=== PATIENT | female | born 1980 | race Two or more races ===

== ENCOUNTER 2020-01-28 06:12 | Day surgery (SDC) | payer OTHER ==
[~2020-01-28 06:12] MED LIST: MULTI VITAMIN1 EACH PO
[2020-01-28] MEDS ORDERED: MOTRIN IB200 M1 PO (08:52)
[2020-01-28] MEDS ORDERED: MORGIDOX100 MG PO (08:53)
== END 2020-01-28 13:45 | disposition home or self-care (01) ==
LOC: CIR.AMB 06:12 → ADM 08:15 → CIR.AMB 13:45
PROVIDERS: ATTEND Obstetrics & Gynecology
DX: O02.1 Missed abortion (principal)

== ENCOUNTER → 2020-08-28 | Outpatient (CLI) | payer OTHER ==
[~2020-08-28] MED LIST changes: +MORGIDOX100 MG PO; +MOTRIN IB200 M1 PO
== END | disposition home or self-care (01) ==
LOC: PRENATAL 09:58
PROVIDERS: ATTEND Obstetrics & Gynecology Maternal & Fetal Medicine
DX: O35.0XX1 Maternal care for (suspected) central nervous system malformation in fetus, fetus 1 (principal); O35.3XX1 Maternal care for (suspected) damage to fetus from viral disease in mother, fetus 1; O98.512 Other viral diseases complicating pregnancy, second trimester; O09.522 Supervision of elderly multigravida, second trimester; Z36.89 Encounter for other specified antenatal screening; Z3A.23 23 weeks gestation of pregnancy

== ENCOUNTER 2022-09-13 15:22 | Outpatient (CLI) | payer OTHER ==
[2022-09-13] MEDS ORDERED: ST. JOSEPH ASPI81 M2 PO (16:36)
[2022-09-13] MEDS ORDERED: PRENA1 TRUE CO1 EACH PO (16:36)
== END 2022-09-14 10:55 | disposition home or self-care (01) ==
LOC: OBS/DEL 15:22
PROVIDERS: ATTEND Specialist
DX: O26.892 Other specified pregnancy related conditions, second trimester (principal); E16.1 Other hypoglycemia; Z3A.19 19 weeks gestation of pregnancy

== ENCOUNTER 2023-01-15 11:27 | Inpatient (IN) | payer OTHER ==
[~2023-01-15] VITALS: Ht 167.6 cm; Wt 76.2 kg
[~2023-01-15 11:27] MED LIST changes: +PRENA1 TRUE CO1 EACH PO; +ST. JOSEPH ASPI81 M2 PO
== END 2023-02-12 13:22 | disposition home or self-care (01) | DRG 807 ==
LOC: OB/GYN 02-02 13:30 → LDR 02-09 15:37 → OB/GYN 02-09 15:37
PROVIDERS: ADMIT Specialist; ATTEND Specialist
PROC: 3E033VJ Introduction of Other Hormone into Peripheral Vein, Percutaneous Approach (ICD-10-PCS; 2023-02-09)
PROC: 4A1HXCZ Monitoring of Products of Conception, Cardiac Rate, External Approach (ICD-10-PCS; 2023-02-09)
PROC: 10E0XZZ Delivery of Products of Conception, External Approach (ICD-10-PCS; principal; 2023-02-10)
PROC: 0KQM0ZZ Repair Perineum Muscle, Open Approach (ICD-10-PCS; 2023-02-10)
DX: O70.1 Second degree perineal laceration during delivery (principal); Z37.0 Single live birth; O48.0 Post-term pregnancy; O99.824 Streptococcus B carrier state complicating childbirth; Z3A.41 41 weeks gestation of pregnancy; Z20.822 Contact with and (suspected) exposure to COVID-19

== ENCOUNTER 2025-05-05 00:51 | Emergency (ER) | payer OTHER ==
[~2025-05-05] VITALS: Ht 167.6 cm; Wt 68.9 kg
[2025-05-05] MEDS ORDERED: METHYLPREDNISOLONE SOD SUCC 125 MG VIAL IV STA (01:23)
[2025-05-05] MEDS ORDERED: METHYLPREDNISOLONE SOD SUCC 125 MG VIAL ONE (01:25)
[2025-05-05] MEDS ORDERED: ALBUTEROL SULFATE 3 ML/2.5 MG AMPUL.NEB IH SCH (01:30)
[2025-05-05] MEDS ORDERED: ALBUTEROL SULFATE 3 ML/2.5 MG AMPUL.NEB IH ONE (01:50)
[2025-05-05 01:58] LABS: BASO % 0.3 % (0.1-1.2); EOS # 0.27 (0.04-0.54); EOS % 2.2 % (0.7-7.0); LYMPH # 1.82 (1.18-3.74); LYMPH % 14.9 % (19.3-53.1); MEAN PLATELET VOLUME 8.60 fl (9.4-12.4); MONO # 0.81 (0.24-0.82); MONO % 6.6 % (4.7-12.5); NEUT # 9.22 (1.56-6.13); NEUT % 75.7 % (34.0-71.1); RED CELL DISTRIBUTION WIDTH 12.7 % (11.6-14.4); URINE APPEARANCE Clear; URINE BILIRRUBIN Negative (NEGATIVE); URINE BLOOD Moderate; URINE COLOR Yellow; URINE GLUCOSE Negative (NEGATIVE); URINE KETONE Negative (NEGATIVE); URINE LEUKOCYTE Small; URINE NITRATE Negative; URINE PROTEIN Negative (NEGATIVE); URINE UROBILINOGEN 0.2 E.U./dl
[2025-05-05 02:02] LABS: URINE BACTERIA 535.1 uL (0.0-1933); URINE EPITHELIAL CELLS 9.3 uL (0.0-38.8); URINE RBC 15.8 uL (0.0-20.8); URINE WBC 30.1 uL (0.0-23.2)
[2025-05-05 02:15] LABS: URINE CAST 0.00 uL (0.0-1.40)
[2025-05-05 02:22] LABS: INR 1.07
[2025-05-05 02:23] LABS: COVID-19 AG NEGATIVE (NEGATIVE)
[2025-05-05 02:26] LABS: ALT/SGPT 22.0 U/L (12-78); AST/SGOT 16.0 U/L (15-37); BILIRUBIN TOTAL 0.32 mg/dL (0.3-1.2); BUN CREA RATIO 16.0 (7.0-25.0); CREATININE SERUM 0.73 mg/dL (0.55-1.02); GFR 86.61; GLOBULINA 3.9 G/DL (2.4-3.5); GLUCOSE FASTING 122.0 mg/dL (65-100); OSMOLALITY SERUM 279.0 MOSM/KG (275-295)
[2025-05-05] MEDS ORDERED: BUDESONIDE0.5 MG/2 M IH (06:16)
== END 2025-05-05 06:21 | disposition home or self-care (01) ==
LOC: ER 00:52
PROVIDERS: General Practice
DX: J40 Bronchitis, not specified as acute or chronic (principal); Z20.822 Contact with and (suspected) exposure to COVID-19